=== PATIENT | male | born 1965 | race Caucasian/White ===

== ENCOUNTER 2017-02-21 04:10 | Observation (INO) | payer OTHER ==
[~2017-02-21] VITALS: Ht 182.9 cm; Wt 105.0 kg
[2017-02-21] VITALS (7 sets, daily range): BP systolic 111–133; BP diastolic 68–83; PULSE 53–78; RESP 14–20; TEMP 98.1–98.3; O2SAT 96–97
[~2017-02-21 04:10] MED LIST: CLOP75 PO; LISI-360 PO; PRAV40 PO
[2017-02-21] MEDS ORDERED: CLOP75TA PO (04:20)
[2017-02-21] MEDS ORDERED: LISI10TA3 PO (04:20)
[2017-02-21] MEDS ORDERED: PRAV40TA2 PO (04:20)
[2017-02-21] MEDS ORDERED: SODIUM CHLORIDE 0.9% FLUSH 10 ML FLUSH IVF PRN (04:30)
[2017-02-21] MEDS ORDERED: SODIUM CHLORID 0.9% 500 ML INJ 500 ML IV ONE (04:30)
[2017-02-21] MEDS ORDERED: NITROGLYCERIN 0.4 MG SL 25 TABS/BTL SL ONE (04:30)
[2017-02-21] MEDS ORDERED: ASPIRIN 81 MG CHEW TAB PO ONE (04:30)
[2017-02-21 04:38] LABS: AUTOMATED NEUTROPHIL # 2.7 TH/MM3 (1.8-7.7); BASOPHIL # 0.1 TH/MM3 (0-0.2); BASOPHIL % 1.8 % (0.0-2.0); EOSINOPHIL # 0.1 TH/MM3 (0-0.4); EOSINOPHIL % 2.3 % (0.0-4.0); LYMPH % 33.1 % (9.0-44.0); LYMPHOCYTE # 1.7 TH/MM3 (1.0-4.8); MEAN CELL VOLUME 85.7 FL (80.0-100.0); MEAN CORPUSCULAR HEMOGLOBIN 30.9 PG (27.0-34.0); MONO % 8.9 % (0.0-8.0); NEUT % 53.9 % (16.0-70.0); PLATELET COUNT 172 TH/MM3 (150-450); RED BLOOD COUNT 5.25 MIL/MM3 (4.50-5.90); RED CELL DISTRIBUTION WIDTH 13.1 % (11.6-17.2); WHITE BLOOD COUNT 5.1 TH/MM3 (4.0-11.0)
--- NOTE | 2017-02-21 04:38 | PD ---
HPI Chief Complaint: Chest Pain Time Seen by Provider: 04:25 Travel History International Travel<30 days: No Contact w/Intl Traveler<30days: No Traveled to known affect area: No History of Present Illness HPI The patient is 51 year old male who presents to the [facility] emergency department with a history of fatigue that began a month ago. He then developed chest pain and shortness of breath that began in the afternoon yesterday. He has a history of hypertension and hyperlipidemia. He stopped cholesterol medications and Plavix a month ago due to running out. He has had a stress test that was negative over a year ago. The patient denies any history of fever, cough, congestion, neck pain, diarrhea, urinary symptoms, or neurologic symptoms. He had heart burn yesterday and has had midepigastric abdominal pain. His last BM was yesterday. He denies blood in his stool. The patient also reports having a pain near the left shoulder blade that comes and goes and has been present for the past month. The patient reports that overall he is just not felt well and like his usual self since having a mild stroke without any residual focal weakness a year ago. PCP: Dr. Barton. [facility] Past Medical History Narrative Medical The patient's past medical history is significant for hypertension, hyperlipidemia, prior stroke in 2016, sleep apnea. Asthma: No Blood Disorders: No Heart Rhythm Problems: No Cancer: No Cardiovascular Problems: No High Cholesterol: Yes Chemotherapy: No Chest Pain: No Congestive Heart Failure: No COPD: No Cerebrovascular Accident: Yes (TIA 2014) Diabetes: No Diminished Hearing: No Endocrine: No Genitourinary: No Hypertension: Yes Immune Disorder: No Musculoskeletal: No Neurologic: No Psychiatric: No Reproductive: No Respiratory: No Immunizations Current: Yes Radiation Therapy: No Sleep Apnea: Yes Thyroid Disease: No Tetanus Vaccination: Unknown Influenza Vaccination: No Past Surgical History Narrative Surgical The patient's past surgical history is significant for shoulder sx- arthroscopy , vasectomy, tonsillectomy. Tonsillectomy: Yes Other Surgery: Yes (VASECTOMY) Social History Alcohol Use: Yes (OCCASIONAL) Tobacco Use: No Substance Use: No Allergies-Medications (Allergen,Severity, Reaction): Coded Allergies: No Known Allergies (Verified Allergy, Unknown, 02/21/17) Reported Meds & Prescriptions Reported Meds & Active Scripts Active Reported Pravastatin 40 Mg Tab 40 Mg PO DAILY Clopidogrel (Clopidogrel Bisulfate) 75 Mg Tab 75 Mg PO DAILY Lisinopril 10 Mg Tab 10 Mg PO DAILY Review of Systems Except as stated in HPI: all other systems reviewed are Neg General / Constitutional: No: Fever Eyes: No: Visual changes HENT: No: Headaches Cardiovascular: Positive: Chest Pain or Discomfort, Dyspnea on exertion Respiratory: No: Shortness of Breath Gastrointestinal: No: Abdominal Pain Genitourinary: No: Dysuria Musculoskeletal: No: Pain Skin: No Rash Neurologic: No: Weakness Psychiatric: No: Depression Endocrine: No: Polydipsia Hematologic/Lymphatic: No: Easy Bruising Physical Exam Narrative General: The patient is a well-developed well-nourished male in no acute distress. Head and Neck exam: Head is normocephalic atraumatic. Eyes: EOMI, pupils are equal round and reactive to light. Nose: Midline septum with pink mucous membranes Mouth: Dentition unremarkable. Moist mucus membranes. Posterior oropharynx is not erythematous. No tonsillar hypertrophy. Uvula midline. Airway patent. Neck: No palpable lymphadenopathy. No nuchal rigidity. No thyromegaly. Cardiovascular: Regular rate and rhythm without murmurs, gallops, or rubs. Lungs: Clear to auscultation bilaterally. No wheezes, rhonchi, or rales. Abdomen: Soft, without tenderness to palpation in all 4 quadrants of the abdomen. No guarding, rebound, or rigidity. Normal bowel sounds are audible. No tenderness on palpation of McBurney's point. Extremities: No clubbing, cyanosis, or edema. 2+ pulses in all 4 extremities. No calf tenderness on palpation. Back: No spinous process tenderness to palpation. No costovertebral angle tenderness to palpation. Neurologic Exam: Grossly nonfocal. Skin Exam: No rash noted. Intact skin that is warm and dry. Data Data Last Documented VS Vital Signs Date Time Temp Pulse Resp B/P (MAP) Pulse Ox O2 Delivery O2 Flow Rate FiO2 02/21/17 05:43 57 14 126/77 (93) 97 Nasal Cannula 2.00 02/21/17 04:21 98.3 Orders Orders Electrocardiogram (02/21/17 04:26) B-Type Natriuretic Peptide (02/21/17 04:26) Ckmb (Isoenzyme) Profile (02/21/17 04:26) Complete Blood Count With Diff (02/21/17 04:26) Comprehensive Metabolic Panel (02/21/17 04:26) Magnesium (Mg) (02/21/17 04:26) Prothrombin Time / Inr (Pt) (02/21/17 04:26) Act Partial Throm Time (Ptt) (02/21/17 04:26) Troponin I (02/21/17 04:26) Lipase (02/21/17 04:26) Chest, Single Ap (02/21/17 04:) Ecg Monitoring (02/21/17 04:) Bilateral Bp Monitoring (02/21/17 04:26) Iv Access Insert/Monitor (02/21/17 04:) Oximetry (02/21/17 04:) Oxygen Administration (02/21/17 04:) Aspirin Chew (Aspirin Chew) (02/21/17 04:30) Sodium Chloride 0.9% Flush (Ns Flush) (02/21/17 04:30) Nitroglycerin Sl (Nitrostat Sl) (02/21/17 04:30) Sodium Chlorid 0.9% 500 Ml Inj (Ns 500 M (02/21/17 04:30) Pantoprazole Inj (Protonix Inj) (02/21/17 05:00) Famotidine Inj (Pepcid Inj) (02/21/17 05:00) CKMB (02/21/17 04:30) CKMB% (02/21/17 04:30) Admit Order (Ed Use Only) (02/21/17 06:15) Labs Laboratory Tests Test 02/21/17 04:30 White Blood Count 5.1 TH/MM3 Red Blood Count 5.25 MIL/MM3 Hemoglobin 16.2 GM/DL Hematocrit 45.0 % Mean Corpuscular Volume 85.7 FL Mean Corpuscular Hemoglobin 30.9 PG Mean Corpuscular Hemoglobin Concent 36.0 % Red Cell Distribution Width 13.1 % Platelet Count 172 TH/MM3 Mean Platelet Volume 8.0 FL Neutrophils (%) (Auto) 53.9 % Lymphocytes (%) (Auto) 33.1 % Monocytes (%) (Auto) 8.9 % Eosinophils (%) (Auto) 2.3 % Basophils (%) (Auto) 1.8 % Neutrophils # (Auto) 2.7 TH/MM3 Lymphocytes # (Auto) 1.7 TH/MM3 Monocytes # (Auto) 0.4 TH/MM3 Eosinophils # (Auto) 0.1 TH/MM3 Basophils # (Auto) 0.1 TH/MM3 CBC Comment AUTO DIFF Differential Comment AUTO DIFF CONFIRMED Platelet Estimate NORMAL Platelet Morphology Comment NORMAL Red Cell Morphology Comment NORMAL Prothrombin Time 10.1 SEC Prothromb Time International Ratio 0.9 RATIO Activated Partial Thromboplast Time 21.8 SEC Blood Urea Nitrogen 18 MG/DL Creatinine 0.97 MG/DL Random Glucose 131 MG/DL Total Protein 6.3 GM/DL Albumin 3.5 GM/DL Calcium Level 8.4 MG/DL Magnesium Level 2.3 MG/DL Alkaline Phosphatase 70 U/L Aspartate Amino Transf (AST/SGOT) 38 U/L Alanine Aminotransferase (ALT/SGPT) 30 U/L Total Bilirubin 0.3 MG/DL Sodium Level 137 MEQ/L Potassium Level 4.2 MEQ/L Chloride Level 104 MEQ/L Carbon Dioxide Level 25.4 MEQ/L Anion Gap 8 MEQ/L Estimat Glomerular Filtration Rate 82 ML/MIN Total Creatine Kinase 241 U/L Creatine Kinase MB 2.5 NG/ML Troponin I LESS THAN 0.02 NG/ML B-Type Natriuretic Peptide 6 PG/ML Lipase 128 U/L [facility] Medical Decision Making Medical Screen Exam Complete: Yes Emergency Medical Condition: Yes Medical Record Reviewed: Yes Interpretation(s) Last Impressions Chest X-Ray 02/21/17 0426 Signed Impressions: Service Date/Time: Tuesday, February 21, 2017 04:38 - CONCLUSION: Normal examination. Chucho Aparicio MD Differential Diagnosis Acute coronary syndrome, versus acid reflux, versus pancreatitis, versus anxiety disorder Narrative Course During the course of the patients emergency department visit, the patients history, examination, and differential diagnosis were reviewed with the patient. The patient was placed on a spareribs trimmer with oximetry and frequent blood pressure monitoring. The patient had IV access obtained and blood work sent for analysis. The patient had an ECG done on arrival that shows a sinus bradycardia heart rate of 59, no acute ST segment elevation. The patient was initially provided aspirin 324 mg by mouth 1, sublingual nitroglycerin 1, normal saline a 500 mL bolus 1, famotidine 20 mg IV. The patients laboratory studies were reviewed and remarkable for a white count of 5.1, hemoglobin 16.2, platelets 172 with 8.9 monocytes. CMP is remarkable for glucose of 131 Radiology studies were reviewed and remarkable for a chest x-ray that shows no acute cardiopulmonary disease. The patients results were discussed with the patient, including the plan of care. I explained that further testing and/ or monitoring is indicated based on the patients history, examination, and/ or laboratory findings. Therefore, I recommended admission for additional evaluation. The patient expressed understanding and was agreeable with this plan. The patient was admitted to the hospital in stable condition and sent to a bed under the care of chest pain center. Diagnosis Primary Impression: Chest pain, rule out acute myocardial infarction Admitting Information Admitting Physician Requests: Observation Keerthi Almazan MD Feb 21, 2017 04:38
[2017-02-21 04:44] LABS: HEMO FLAGS AUTO DIFF
[2017-02-21 04:50] LABS: APTT (PATIENT) 21.8 SEC (24.3-30.1); INTERNATIONAL NORMALIZED RATIO 0.9 RATIO; PROTHROMBIN TIME - PATIENT 10.1 SEC (9.8-11.6)
[2017-02-21] MEDS ORDERED: FAMOTIDINE 20 MG/2 ML VIAL IV PUSH SCH (05:00)
[2017-02-21] MEDS ORDERED: PANTOPRAZOLE SODIUM 40 MG VIAL IV PUSH ONE (05:00)
--- NOTE | 2017-02-21 05:05 | RADRPT ---
EXAM DATE/TIME: 02/21/2017 04:38 [facility] COMPARISON: No previous studies available for comparison. INDICATIONS : Chest pain. MEDICAL HISTORY : None. SURGICAL HISTORY : None. ENCOUNTER: Initial ACUITY: 1 day PAIN SCORE: 0/10 LOCATION: Bilateral chest FINDINGS: A single view of the chest demonstrates the lungs to be symmetrically aerated without evidence of mas s, infiltrate or effusion. The cardiomediastinal contours are unremarkable. Osseous structures are intact. CONCLUSION: Normal examination. Chucho Aparicio MD on February 21, 2017 at 5:04 Board Certified Radiologist. This report was verified electronically.
[2017-02-21 05:26] LABS: ALKALINE PHOSPHATASE 70 U/L (45-117); ALT (GPT) 30 U/L (12-78); ANION GAP 8 MEQ/L (5-15); AST (GOT) 38 U/L (15-37); BICARBONATE 25.4 MEQ/L (21.0-32.0); BLOOD UREA NITROGEN 18 MG/DL (7-18); CHLORIDE 104 MEQ/L (98-107); CREATINE KINASE 241 U/L (39-308); GLOMERULAR FILTRATION RATE 82 ML/MIN (>89); MAGNESIUM 2.3 MG/DL (1.5-2.5); POTASSIUM 4.2 MEQ/L (3.5-5.1); SODIUM (NA) 137 MEQ/L (136-145); TOTAL BILIRUBIN ADULT 0.3 MG/DL (0.2-1.0)
[2017-02-21 05:39] LABS: CKMB 2.5 NG/ML (0.5-3.6)
[2017-02-21 05:43] LABS: PLATELET ESTIMATE SMEAR NORMAL (NORMAL); PLATELET MORPHOLOGY NORMAL (NORMAL); SCAN/DIFF AUTO DIFF CONFIRMED
[2017-02-21] MEDS ORDERED: SODIUM CHLORIDE 0.9% FLUSH 10 ML FLUSH IV FLUSH PRN (07:00)
--- NOTE | 2017-02-21 08:42 | HHI.HP ---
HPI Primary Care Physician Staci Conn MD Chief Complaint Chest pain History of Present Illness This is a 51-year-old male that presents to ED via private vehicle with complaint of chest tightness and dizziness. This began yesterday afternoon around 3:00. Is a central chest tightness with dizziness lasting about 30 minutes. No associated shortness of breath, nausea, or diaphoresis. An little later in the day it recurred again. Not exertionally related. Also lasting about 30 minutes. No nausea or diaphoresis. 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 No chest discomfort with this. Denies history of heart disease. He states that he had a stress test a year ago was okay but his girlfriend states he has never had a stress test. Denies recent illness. Denies fevers or chills. Review of Systems General: Patient denies fevers, chills recent, and recent travel HEENT: Patient denies headache, sore throat, difficulty swallowing. Cardiovascular: Has the chest discomfort as mentioned above. Denies sensation of heart beating rapidly or irregularly. No syncope. Denies diaphoresis. 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 Denies inspirational chest discomfort. Denies coughing wheezing or hemoptysis. GI: Patient denies nausea, vomiting, diarrhea, abdominal pain, bloody stools. Musculoskeletal: Patient denies joint pain or edema. Denies calf pain or edema. Neurovascular: Patient denies numbness, tingling, weakness in extremities. Denies headache. Endocrine: Denies polyuria and polydipsia. Hematologic: Denies easy bruising. Skin: Denies rash or itching. Past Family Social History Allergies: Coded Allergies: No Known Allergies (Verified Adverse Reaction, Unknown, 02/21/17) Past Medical History Hypertension, hyperlipidemia, TIA 2016. Denies diabetes and known CAD. Past Surgical History Shoulder surgery, vasectomy, and tonsillectomy. Reported Medications Reported Meds & Active Scripts Active Reported Pravastatin 40 Mg Tab 40 Mg PO DAILY Clopidogrel (Clopidogrel Bisulfate) 75 Mg Tab 75 Mg PO DAILY Lisinopril 10 Mg Tab 10 Mg PO DAILY Active Ordered Medications Current Medications Medications (Trade) Dose Ordered Sig/Luke Route Start Time Stop Time Status Last Admin (NS Flush) 2 ml UNSCH PRN IVF 02/21/17 04:30 (Pepcid Inj) 20 mg STAT IV PUSH 02/21/17 05:00 (NS Flush) 2 ml UNSCH PRN IV FLUSH 02/21/17 07:00 (NS Flush) 2 ml BID IV FLUSH 02/21/17 09:00 (Pepcid) 20 mg BID PO 02/21/17 09:00 Family History Denies family history of CAD. Social History Lifetime nonsmoker. Occasional alcohol. Denies illicit drugs. Physical Exam Vital Signs Vital Signs Date Time Temp Pulse Resp B/P (MAP) Pulse Ox O2 Delivery O2 Flow Rate FiO2 02/21/17 05:43 57 14 126/77 (93) 97 Nasal Cannula 2.00 02/21/17 04:29 96 Room Air 02/21/17 04:29 20 96 Room Air 02/21/17 04:29 126/77 (93) 133/82 (99) 02/21/17 04:21 98.3 78 16 126/77 (93) 96 02/21/17 04:17 58 02/21/17 04:11 98.2 65 16 133/83 (100) 97 Room Air Physical Exam GENERAL: This is a well-nourished, well-developed patient, in no apparent distress. Patient speaks in clear complete sentences. Patient is pleasant. HEENT: Head is atraumatic and normocephalic. Neck is supple without lymphadenopathy and trachea is midline. No JVD or carotid bruits. CARDIOVASCULAR: Regular rate and rhythm without murmurs, gallops, or rubs. RESPIRATORY: Clear to auscultation. Breath sounds equal bilaterally. No wheezes , rales, or rhonchi. Chest wall is nontender. No use of accessory muscles. GASTROINTESTINAL: Abdomen is nontender, nondistended. Abdomen soft. No obvious pulsatile mass or bruit. No CVA tenderness. Strong femoral pulses bilaterally. Normal bowel sounds in all quadrants. MUSCULOSKELETAL: Patient is moving upper and lower extremities freely. No calf tenderness or edema, no Homans sign. Strong pulses in upper and lower extremities. NEUROLOGICAL: Patient is alert and oriented. Cranial nerves 2-12 are grossly intact. No focal deficits and speech is clear. SKIN: No rash and turgor is normal. Laboratory Laboratory Tests Test 11/14/17 04:30 02/21/17 07:40 White Blood Count 5.1 Red Blood Count 5.25 Hemoglobin 16.2 Hematocrit 45.0 Mean Corpuscular Volume 85.7 Mean Corpuscular Hemoglobin 30.9 Mean Corpuscular Hemoglobin Concent 36.0 Red Cell Distribution Width 13.1 Platelet Count 172 Mean Platelet Volume 8.0 Neutrophils (%) (Auto) 53.9 Lymphocytes (%) (Auto) 33.1 Monocytes (%) (Auto) 8.9 Eosinophils (%) (Auto) 2.3 Basophils (%) (Auto) 1.8 Neutrophils # (Auto) 2.7 Lymphocytes # (Auto) 1.7 Monocytes # (Auto) 0.4 Eosinophils # (Auto) 0.1 Basophils # (Auto) 0.1 CBC Comment AUTO DIFF Differential Comment AUTO DIFF CONFIRMED Platelet Estimate NORMAL Platelet Morphology Comment NORMAL Red Cell Morphology Comment NORMAL Prothrombin Time 10.1 Prothromb Time International Ratio 0.9 Activated Partial Thromboplast Time 21.8 Blood Urea Nitrogen 18 Creatinine 0.97 Random Glucose 131 Total Protein 6.3 Albumin 3.5 Calcium Level 8.4 Magnesium Level 2.3 Alkaline Phosphatase 70 Aspartate Amino Transf (AST/SGOT) 38 Alanine Aminotransferase (ALT/SGPT) 30 Total Bilirubin 0.3 Sodium Level 137 Potassium Level 4.2 Chloride Level 104 Carbon Dioxide Level 25.4 Anion Gap 8 Estimat Glomerular Filtration Rate 82 Total Creatine Kinase 241 Creatine Kinase MB 2.5 Troponin I LESS THAN 0.02 B-Type Natriuretic Peptide 6 Lipase 128 Result Diagram: 02/21/1742902/21/17 043 Imaging Last 24 hours Impressions Chest X-Ray 02/21/176 Signed Impressions: Service Date/Time: Tuesday, February 21, 2017 04:38 - CONCLUSION: Normal examination. Chucho Aparicio MD Course Initial EKG is sinus bradycardia without significant ST segment depressions or elevations. Caprini VTE Risk Assessment Caprini VTE Risk Assessment: No/Low Risk (score <= 1) Caprini Risk Assessment Model Point Value = 1 Point Value = 2 Point Value = 3 Point Value = 5 Age 41-60 Minor surgery BMI > 25 kg/m2 Swollen legs Varicose veins or History of unexplained or recurrent spontaneous Oral contraceptives or hormone replacement Sepsis (< 1 month) Serious lung disease, including pneumonia (< 1 month) Abnormal pulmonary function Acute myocardial infarction Congestive heart failure (< 1 month) History of inflammatory bowel disease Medical patient at bed rest Age 61-74 Arthroscopic surgery Major open surgery (> 45 min) Laparoscopic surgery (> 45 min) Malignancy Confined to bed (> 72 hours) Immobilizing plaster cast Central venous access Age >= 75 History of VTE Family history of VTE Factor V Leiden Prothrombin [id number] Lupus anticoagulant Anticardiolipin antibodies Elevated serum homocysteine Heparin-induced thrombocytopenia Other congenital or acquired thrombophilia Stroke (< 1 month) Elective arthroplasty Hip, pelvis, or leg fracture Acute spinal cord injury (< 1 month) Prophylaxis Regimen Total Risk Factor Score Risk Level Prophylaxis Regimen 0-1 Low Early ambulation 2 Moderate Order ONE of the following: *Sequential Compression Device (SCD) *Heparin 5000 units SQ BID 3-4 Higher Order ONE of the following medications: *Heparin 5000 units SQ TID *Enoxaparin/Lovenox 40 mg SQ daily (WT < 150 kg, CrCl > 30 mL/min) *Enoxaparin/Lovenox 30 mg SQ daily (WT < 150 kg, CrCl > 10-29 mL/min) *Enoxaparin/Lovenox 30 mg SQ BID (WT < 150 kg, CrCl > 30 mL/min) AND/OR *Sequential Compression Device (SCD) 5 or more Highest Order ONE of the following medications: *Heparin 5000 units SQ TID (Preferred with Epidurals) *Enoxaparin/Lovenox 40 mg SQ daily (WT < 150 kg, CrCl > 30 mL/min) *Enoxaparin/Lovenox 30 mg SQ daily (WT < 150 kg, CrCl > 10-29 mL/min) *Enoxaparin/Lovenox 30 mg SQ BID (WT < 150 kg, CrCl > 30 mL/min) AND *Sequential Compression Device (SCD) Assessment and Plan Assessment and Plan * Chest pain: Patient will continue to have serial cardiac enzymes and EKGs for ruling out purposes. He was seen by Dr. Ron cardiology in the chest pain center and will likely undergo a Raphael protocol ETT if he rules out. He' ll be discharged home if the stress test was nonischemic with instructions to follow-up with his PCP. * Hypertension: Continue current medication. * Hyperlipidemia: Continue current medication. Patient is stable at this time. He is agreeable to this plan. Keith Witt Feb 21, 2017 08:42
[2017-02-21] MEDS ORDERED: LISINOPRIL 10 MG TAB PO SCH (09:00)
[2017-02-21] MEDS ORDERED: SODIUM CHLORIDE 0.9% FLUSH 10 ML FLUSH IV FLUSH SCH (09:00)
[2017-02-21] MEDS ORDERED: PRAVASTATIN SOD 40 MG TAB PO SCH (09:00)
[2017-02-21] MEDS ORDERED: CLOPIDOGREL 75 MG TAB PO SCH (09:00)
[2017-02-21] MEDS ORDERED: FAMOTIDINE 20 MG TAB PO SCH (09:00)
[2017-02-21 12:21] LABS: CREATINE KINASE 146 U/L (39-308)
[2017-02-21 12:34] LABS: CKMB 2.1 NG/ML (0.5-3.6)
--- NOTE | 2017-02-21 13:52 | HHI.DCPOC ---
Discharge Care Plan Diagnosis: (1) Chest pain (2) HTN (hypertension) (3) HLD (hyperlipidemia) Goals to Promote Your Health * To prevent worsening of your condition and complications * To maintain your health at the optimal level Directions to Meet Your Goals Take your medications as prescribed Follow your dietary instruction Follow activity as directed Keep your appointments as scheduled Take your immunizations and boosters as scheduled If your symptoms worsen call your PCP, if no PCP go to Urgent Care Center or Emergency Room Smoking is Dangerous to Your Health. Avoid second hand smoke Call the 24-hour hour crisis hotline for domestic abuse at Keith Witt Feb 21, 2017 13:52
--- NOTE | 2017-02-21 17:17 | TR ---
Date Performed: 02/21/2017 Time Performed: 13:28:33 DOCTOR: Maite Ron DRUG LIST: CLINICAL HISTORY: REASON FOR TEST: REASON FOR ENDING: OBSERVATION: CONCLUSION: BRANDI PROTOCOL. NO CP. TEST STOPPED AFTER EXCEEDING GOAL HR SECONDARY TO SOB AND LEG FATIGUE.Maximum AF=894 % Max HR Achieved=91.0% Maximum TN=172/82 Total Exercise Time=7:04 COMMENTS:
--- NOTE | 2017-02-21 17:20 | EKG ---
Date Performed: 02/21/2017 Time Performed: 07:35:29 PTAGE: 51 years EKG: SINUS BRADYCARDIA BORDERLINE ECG Since PREVIOUS TRACING , no significant change noted PREVIOUS TRACIN02/21/2017 04.29 DOCTOR: Maite Ron Interpretating Date/Time 02/21/2017 17:18:40
--- NOTE | 2017-02-21 17:20 | EKG ---
Date Performed: 02/21/2017 Time Performed: 10:28:44 PTAGE: 51 years EKG: SINUS BRADYCARDIA BORDERLINE ECG Since PREVIOUS TRACING , no significant change noted PREVIOUS TRACIN02/21/2017 07.35 DOCTOR: Maite Ron Interpretating Date/Time 02/21/2017 17:18:00
--- NOTE | 2017-02-21 17:21 | EKG ---
Date Performed: 02/21/2017 Time Performed: 04:29:08 PTAGE: 51 years EKG: SINUS BRADYCARDIA BORDERLINE ECG Since PREVIOUS TRACING , no significant change noted PREVIOUS TRACIN01/09/2016 23.53 DOCTOR: Maite Ron Interpretating Date/Time 02/21/2017 17:19:46
== END 2017-02-21 17:21 | disposition home or self-care (01) ==
LOC: NEPC 04:10 → NEDA 06:16 → NEPHCDU 12:01
DX: R07.89 Other chest pain (principal); R53.83 Other fatigue; R06.02 Shortness of breath; I10 Essential (primary) hypertension; E78.5 Hyperlipidemia, unspecified; R12 Heartburn; R10.13 Epigastric pain; G47.30 Sleep apnea, unspecified; R42 Dizziness and giddiness; R79.89 Other specified abnormal findings of blood chemistry; Z86.73 Personal history of transient ischemic attack (TIA), and cerebral infarction without residual deficits
CPT/HCPCS: 71010; 80053; 82550; 82552; 83690; 83735; 83880; 84484; 85025; 85610; 85730; 93005; 93017; 96361; 96374; 99285; C9113; G0378; J7040

== ENCOUNTER 2017-05-31 03:30 | Emergency (ER) | payer OTHER ==
[~2017-05-31] VITALS: Ht 182.9 cm; Wt 106.0 kg
[~2017-05-31 03:30] MED LIST changes: -CLOP75 PO; +CLOP75TA PO; -LISI-360 PO; +LISI10TA3 PO; -PRAV40 PO; +PRAV40TA2 PO
[2017-05-31 03:34] VITALS: BP 123/74; PULSE 61; RESP 16; TEMP 98.2; O2SAT 97
== END 2017-05-31 04:25 | disposition left against medical advice (07) ==
LOC: NED 03:30
DX: Z53.21 Procedure and treatment not carried out due to patient leaving prior to being seen by health care provider (principal)
CPT/HCPCS: 99281

== ENCOUNTER 2017-09-01 23:40 | Emergency (ER) | payer OTHER ==
[2017-09-01 23:49] VITALS: BP 129/74; PULSE 73; RESP 18; TEMP 98.1; O2SAT 97
--- NOTE | 2017-09-02 00:48 | RADRPT ---
EXAM DATE: 09/02/2017 12:39 AM EDT AGE/SEX: 51 years / Male INDICATIONS: Chest pain. CLINICAL DATA: This is the patient's initial encounter. Patient reports that signs and symptoms have been present for 1 week and indicates a pain score of 3/10. MEDICAL/SURGICAL HISTORY: Hypercholesterolemia. Hypertension. Tonsillectomy. Vasectomy COMPARISON: [facility] [place], CHEST SINGLE AP, 02/21/2017. . FINDINGS: A single AP view of the chest demonstrates the lungs to be symmetrically aerated without evidence of mass, infiltrate or effusion. The cardiomediastinal contours are unremarkable. Osseous structures a re intact. CONCLUSION: No evidence of acute cardiopulmonary disease. Electronically signed by: Henrry Gallego MD 09/02/2017 12:47 AM EDT
[2017-09-02 00:49] LABS: AUTOMATED NEUTROPHIL # 4.4 TH/MM3 (1.8-7.7); BASOPHIL % 0.6 % (0.0-2.0); EOSINOPHIL # 0.2 TH/MM3 (0-0.4); EOSINOPHIL % 2.2 % (0.0-4.0); HEMATOCRIT 44.4 % (39.0-51.0); HEMOGLOBIN 15.5 GM/DL (13.0-17.0); LYMPH % 25.3 % (9.0-44.0); LYMPHOCYTE # 1.8 TH/MM3 (1.0-4.8); MEAN CORPUSCULAR HEMOGLOBIN 29.8 PG (27.0-34.0); MEAN PLATELET VOLUME 7.9 FL (7.0-11.0); MONO % 8.6 % (0.0-8.0); MONOCYTE # 0.6 TH/MM3 (0-0.9); NEUT % 63.3 % (16.0-70.0); PLATELET COUNT 192 TH/MM3 (150-450); RED BLOOD COUNT 5.22 MIL/MM3 (4.50-5.90); RED CELL DISTRIBUTION WIDTH 12.8 % (11.6-17.2)
--- NOTE | 2017-09-02 00:50 | PD ---
HPI . chest pain Chief Complaint: Chest Pain Time Seen by Provider: 23:55 Travel History International Travel<30 days: No Contact w/Intl Traveler<30days: No Traveled to known affect area: No History of Present Illness HPI Patient is a 51-year-old male who for the last few days off and on left-sided chest pain more in the left neck and the left upper back. He said this morning he stood up he felt dizzy lightheaded like he would pass out he sat back down it lasted a few minutes and then it passed. He had a stress test about 3 months ago that was normal. 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 He is not does not smoke he has no diabetes. He is hypertensive taking lisinopril no one in his family had a heart attack before the age of 55 he had a stress test 3 months ago that was normal. Patient 's first EKG is complete normal sinus rhythm at a rate of 71 he is given 2 baby aspirins to chew and awaiting labs given a liter of fluid he thinks he is dehydrated he said last time he came in with symptoms similar he was dehydrated he does have a history of having a TIA he says a "mini stroke where he lost vision temporarily in his left eye but it resolved and has never returned he was on Plavix for a while after that he has stopped he was supposed to be taking a baby aspirin which he is not taking PFSH Past Medical History Asthma: No Blood Disorders: No Heart Rhythm Problems: No Cancer: No Cardiac Catheterization: No Cardiovascular Problems: No High Cholesterol: Yes Chemotherapy: No Chest Pain: No Congestive Heart Failure: No COPD: No Cerebrovascular Accident: Yes (TIA 2014) Diabetes: No Diminished Hearing: No Endocrine: No Genitourinary: No Hypertension: Yes Immune Disorder: No Musculoskeletal: No Neurologic: No Psychiatric: No Reproductive: No Respiratory: No Immunizations Current: Yes Radiation Therapy: No Sleep Apnea: Yes Thyroid Disease: No Past Surgical History Coronary Artery Bypass Graft: No Tonsillectomy: Yes Other Surgery: Yes (VASECTOMY) Social History Alcohol Use: Yes (OCCASIONAL) Tobacco Use: No Substance Use: No Allergies-Medications (Allergen,Severity, Reaction): Coded Allergies: No Known Allergies (Verified Allergy, Unknown, 09/01/17) Reported Meds & Prescriptions Reported Meds & Active Scripts Active Reported Pravastatin 40 Mg Tab 40 Mg PO DAILY Clopidogrel (Clopidogrel Bisulfate) 75 Mg Tab 75 Mg PO DAILY Lisinopril 10 Mg Tab 10 Mg PO DAILY Review of Systems Except as stated in HPI: all other systems reviewed are Neg HENT: Positive: Neck Pain Cardiovascular: Positive: Chest Pain or Discomfort Physical Exam Narrative GENERAL: Awake alert nontoxic-appearing SKIN: Warm and dry. HEAD: Atraumatic. Normocephalic. EYES: Pupils equal and round. No scleral icterus. No injection or drainage. ENT: No nasal bleeding or discharge. Mucous membranes pink and moist. NECK: Trachea midline. No JVD. CARDIOVASCULAR: Regular rate and rhythm. RESPIRATORY: No accessory muscle use. Clear to auscultation. Breath sounds equal bilaterally. GASTROINTESTINAL: Abdomen soft, non-tender, nondistended. Hepatic and splenic margins not palpable. MUSCULOSKELETAL: Extremities without clubbing, cyanosis, or edema. No obvious deformities. NEUROLOGICAL: Awake and alert. No obvious cranial nerve deficits. Motor grossly within normal limits. Five out of 5 muscle strength in the arms and legs. Normal speech. PSYCHIATRIC: Appropriate mood and affect; insight and judgment normal. Data Data Last Documented VS Vital Signs Date Time Temp Pulse Resp B/P (MAP) Pulse Ox O2 Delivery O2 Flow Rate FiO2 09/01/17 23:49 98.1 73 18 129/74 (92) 97 Orders Orders Complete Blood Count With Diff (09/02/17 00:25) Comprehensive Metabolic Panel (09/02/17 00:25) Troponin I (09/02/17 00:25) Lipase (09/02/17 00:25) Chest, Single Ap (09/02/17 00:25) Electrocardiogram (09/02/17 ) Aspirin Chew (Aspirin Chew) (09/02/17 01:00) Sodium Chlor 0.9% 1000 Ml Inj (Ns 1000 M (09/02/17 01:45) Troponin I (09/02/17 02:47) Ed Discharge Order (09/02/17 03:55) Labs Laboratory Tests Test 09/02/17 00:25 09/02/17 02:53 White Blood Count 7.0 TH/MM3 Red Blood Count 5.22 MIL/MM3 Hemoglobin 15.5 GM/DL Hematocrit 44.4 % Mean Corpuscular Volume 85.0 FL Mean Corpuscular Hemoglobin 29.8 PG Mean Corpuscular Hemoglobin Concent 35.0 % Red Cell Distribution Width 12.8 % Platelet Count 192 TH/MM3 Mean Platelet Volume 7.9 FL Neutrophils (%) (Auto) 63.3 % Lymphocytes (%) (Auto) 25.3 % Monocytes (%) (Auto) 8.6 % Eosinophils (%) (Auto) 2.2 % Basophils (%) (Auto) 0.6 % Neutrophils # (Auto) 4.4 TH/MM3 Lymphocytes # (Auto) 1.8 TH/MM3 Monocytes # (Auto) 0.6 TH/MM3 Eosinophils # (Auto) 0.2 TH/MM3 Basophils # (Auto) 0.0 TH/MM3 CBC Comment DIFF FINAL Differential Comment Blood Urea Nitrogen 17 MG/DL Creatinine 1.03 MG/DL Random Glucose 143 MG/DL Total Protein 6.4 GM/DL Albumin 3.7 GM/DL Calcium Level 8.4 MG/DL Alkaline Phosphatase 57 U/L Aspartate Amino Transf (AST/SGOT) 23 U/L Alanine Aminotransferase (ALT/SGPT) 32 U/L Total Bilirubin 0.4 MG/DL Sodium Level 140 MEQ/L Potassium Level 3.7 MEQ/L Chloride Level 105 MEQ/L Carbon Dioxide Level 26.0 MEQ/L Anion Gap 9 MEQ/L Estimat Glomerular Filtration Rate 76 ML/MIN Troponin I LESS THAN 0.02 NG/ML LESS THAN 0.02 NG/ML Lipase 123 U/L MDM Medical Decision Making Medical Screen Exam Complete: Yes Emergency Medical Condition: Yes Medical Record Reviewed: Yes Interpretation(s) EKG NSR rate of [address] segment abnormalities Differential Diagnosis Frontal diagnosis includes ischemic chest pain versus costochondritis versus muscle spasm neck versus dehydration versus pneumonia versus Narrative Course Patient EKG normal sinus rhythm troponin is less than 0.02 he his physical exam is normal his vitals are normal he would like to go home the pain is been over 8 hours EKG is normal troponin is negative I do not think it is necessary to admit him to chest pain center or to repeat the troponins the pain is been going on for over 8 hours at the first EKG negative troponin negative discharged home Diagnosis Primary Impression: Jack Luz MD September 02, 2017 00:50
[2017-09-02] MEDS ORDERED: ASPIRIN 81 MG CHEW TAB CHEW ONE (01:00)
[2017-09-02 01:20] LABS: ALBUMIN 3.7 GM/DL (3.4-5.0); ALKALINE PHOSPHATASE 57 U/L (45-117); ALT (GPT) 32 U/L (12-78); AST (GOT) 23 U/L (15-37); BLOOD UREA NITROGEN 17 MG/DL (7-18); CALCIUM 8.4 MG/DL (8.5-10.1); CHLORIDE 105 MEQ/L (98-107); CREATININE 1.03 MG/DL (0.60-1.30); GLOMERULAR FILTRATION RATE 76 ML/MIN (>89); GLUCOSE,RANDOM 143 MG/DL (74-106); SODIUM (NA) 140 MEQ/L (136-145); TOTAL BILIRUBIN ADULT 0.4 MG/DL (0.2-1.0); TOTAL PROTEIN 6.4 GM/DL (6.4-8.2); TROPONIN I LESS THAN 0.02 NG/ML (0.02-0.05)
[2017-09-02] MEDS ORDERED: SODIUM CHLOR 0.9% 1000 ML INJ 1,000 ML IV ONE (01:45)
--- NOTE | 2017-09-02 14:07 | EKG ---
Date Performed: 09/02/2017 Time Performed: 00:00:07 PTAGE: 51 years EKG: Sinus rhythm NORMAL ECG Since PREVIOUS TRACING , no significant change noted PREVIOUS TRACING DOCTOR: Chaim Macedo Interpretating Date/Time 09/02/2017 14:06:17
== END 2017-09-02 04:03 | disposition home or self-care (01) ==
LOC: NEPE 23:40
DX: R42 Dizziness and giddiness (principal); E78.00 Pure hypercholesterolemia, unspecified; I10 Essential (primary) hypertension; Z86.73 Personal history of transient ischemic attack (TIA), and cerebral infarction without residual deficits
CPT/HCPCS: 71045; 80053; 83690; 84484; 85025; 93005; 99285; J7030